=== PATIENT | male | born 1985 | race Caucasian/White ===

== ENCOUNTER 2024-05-03 07:53 | Emergency (ER) | payer OTHER, SELFPAY ==
[2024-05-03 08:01] VITALS: BP 136/87; PULSE 99; TEMP 36.9; O2SAT 98; BMI 30.7
--- NOTE | 2024-05-03 08:09 | XR_ITS ---
[address] [address] Patient Name: NASIMA HUSSEIN MRN: [id number] date: 1985 Sex: M Assigned Patient Location: ER Current Patient Location: ER Accession/Order Number: [id number] Exam Date: 05/03/2024 08:25 Report Date: 05/03/2024 09:04 At the request of: NOAH ZHONG Procedure: XR chest 1V EXAM: XR chest 1V INDICATION: Cough/fever. COMPARISON: None. TECHNIQUE: Single frontal view of the chest FINDINGS: Normal cardiomediastinal contours. Peripheral airspace opacities in the lower lungs bilaterally. No pleural effusion or pneumothorax. No acute osseous abnormality. XR/XR chest 1V IMPRESSION: Bilateral lower lung multifocal pneumonia. Electronically authenticated by: EMI SABILLON Date: 05/03/2024 09:04
--- NOTE | 2024-05-03 08:18 | ED.URI1 ---
HPI - URI/Sore Throat General Chief Complaint: Upper Respiratory Infection Stated Complaint: URTI COMPLAINTS/FEVER Time Seen by Provider: 05/03/24 08:09 Source: patient Limitations: no limitations History of Present Illness HPI Narrative: Patient here complaining of head congestion aches and pains fever chills nausea with several episodes of diarrhea this week. He said several family members are ill. He went to a local urgent care states he thinks he was tested for COVID and influenza, both were negative. They did place him on Augmentin. He does not have any severe pain in his facial sinus area. Does not have any shortness of breath. He does have some coughing. He says his throat still feels like it is on fire. He is otherwise felt with no underlying past medical history or medication use. Related Data Allergies Allergy/AdvReac Type Severity Reaction Status Date / Time methylprednisolone AdvReac Mild Hives Verified 05/03/24 08:07 [From Medrol] PFSH PFSH Social History Little interest or pleasure in doing things: not at all Feeling down, depressed, or hopeless: not at all Exam Narrative Exam Narrative: Patient is awake alert good historian does not appear toxic or critically ill but he looks like he just does not feel very good and is fatigued and tired. HEENT shows very minimal nasal stuffiness congestion. There is no conjunctivitis. He is mucous membranes are moist and pink. He does have a little bit of coughing and he is bringing up some yellowish-green sputum. No bloody sputum. Heart rate and rhythm are normal. Skin and integument are normal. Does not have any abdominal pain. Mentation and cognitive function are normal. Constitutional Vital Signs, click to edit/add: Last Vital Signs Temp 98.4 F 05/03/24 08:01 Pulse 99 H 05/03/24 08:01 Resp 18 05/03/24 08:01 BP 136/87 05/03/24 08:01 Pulse Ox 98 05/03/24 08:01 O2 Del Method Room Air 05/03/24 08:01 Course Vital Signs Vital signs: Vital Signs Temperature 98.4 F 05/03/24 08:01 Pulse Rate 99 H 05/03/24 08:01 Respiratory Rate 18 05/03/24 08:01 Blood Pressure 136/87 05/03/24 08:01 Pulse Oximetry 98 05/03/24 08:01 Oxygen Delivery Method Room Air 05/03/24 08:01 Temperature 98.4 F 05/03/24 08:01 Pulse Rate 99 H 05/03/24 08:01 Respiratory Rate 18 05/03/24 08:01 Blood Pressure 136/87 05/03/24 08:01 Pulse Oximetry 98 05/03/24 08:01 Oxygen Delivery Method Room Air 05/03/24 08:01 MDM - URI/Sore Throat MDM Narrative Medical decision making narrative: Although he was tested previously his symptoms are strongly suggestive of COVID or influenza so that was repeated. Both of those are negative. Rapid strep is negative. However his chest x-ray shows a substantial left lower lobe pneumonia and also right basilar pneumonia. He has been taking Augmentin and I will give him additionally azithromycin 500 mg IV here. He was given a liter of fluid and had good urinary output. Will give him off work through Saturday of this week and I want him to follow-up with his primary care doctor Lab Data Labs: Lab Results 05/03/24 Range/Units 08:38 Influenza Type A Ag Negative Influenza Type B Ag Negative SARS-CoV-2 Ag (CV2AG) Negative (NEGATIVE) Streptococcus Screen Negative Discharge Plan Discharge Chief Complaint: Upper Respiratory Infection Clinical Impression: Pneumonia Patient Disposition: Home, Self-Care Time of Disposition Decision: 10:41 Print Language: Kyrgyz Additional Instructions: Start azithromycin today. Continue Augmentin. Total rest for next 3 days off work. Follow-up with your family doctor by Saturday Referrals: Harshal Coombs DO [Primary Care Provider] - 1 week
[2024-05-03 09:05] LABS: Influenza Virus A Antigen Negative; Influenza Virus B Antigen Negative; Internal Control Within Normal Limits; Strep A Antigen Screen Negative
[2024-05-03 09:06] LABS: Internal Control Within Normal Limits; SARS-CoV-2 Ag NEGATIVE (NEGATIVE)
[2024-05-03] MEDS: AZITHROMYCIN 500 MG in 0.9 % SODIUM CHLORIDE 250 ML 250 MG IV (09:30)
[2024-05-03] MEDS: 0.9 % SODIUM CHLORIDE 1,000 ML 1000 ML IV (09:31)
== END 2024-05-03 10:47 | disposition home or self-care (01) ==
PROVIDERS: Emergency Provider Emergency Medicine Emergency Medical Services; PCP Family Medicine
DX: J18.9 Pneumonia, unspecified organism (principal); Z20.822 Contact with and (suspected) exposure to COVID-19
CPT/HCPCS: 71045; 87070; 87804; 87811; 87880; 96365; 99285; J0456

== ENCOUNTER 2024-05-11 13:41 | Outpatient (OUT) | payer OTHER, SELFPAY ==
--- NOTE | 2024-05-11 13:52 | XR_ITS ---
The [address] [address] Patient Name: NASIMA HUSSEIN MRN: [id number] date: 1985 Sex: M Assigned Patient Location: [facility] Current Patient Location: Accession/Order Number: [id number] Exam Date: 05/11/2024 13:55 Report Date: 05/12/2024 11:58 At the request of: NASIMA WALKERClifton Procedure: XR chest 2V PROCEDURE: XR chest 2V DATE: 05/11/2024 12:55 PM CDT COMPARISONS: 05/03/2024 CLINICAL INDICATION: 39 years Male BILATERAL PNEUMONIA J18.9 FINDINGS: The cardiomediastinal silhouette and pulmonary vasculature are within normal limits. The lungs have cleared in the interval. Presently, there is no consolidating infiltrates is just pneumonia on these frontal and lateral views. There is no evidence of pleural effusion or pneumothorax. XR/XR chest 2V IMPRESSION: Chest radiograph is within normal limits. Previously noted lung infiltrates have cleared since 05/03/2024 exam. Electronically authenticated by: ELI BALL Date: 05/12/2024 11:58
== END 2024-05-11 13:42 | disposition home or self-care (01) ==
LOC: RAD 13:42
PROVIDERS: PCP Family Medicine; Visit Provider Family Medicine
DX: J18.9 Pneumonia, unspecified organism (principal)
CPT/HCPCS: 71046

== ENCOUNTER 2024-06-16 18:09 | Emergency (ER) | payer OTHER, SELFPAY ==
[2024-06-16 18:19] VITALS: BP 123/81; PULSE 70; TEMP 36.8; O2SAT 97; BMI 31.2
--- NOTE | 2024-06-16 18:23 | XR_ITS ---
The [place] [id number] Patient Name: NASIMA HUSSEIN MRN: [id number] date: 1985 Sex: M Assigned Patient Location: ER Current Patient Location: ED.MAIN Accession/Order Number: [id number] Exam Date: 06/16/2024 18:35 Report Date: 06/16/2024 20:43 At the request of: OMAR MICHEL Procedure: XR finger LT min 2V EXAM: PLAIN FILM OF FINGER LEFT HISTORY: Left finger laceration. TECHNIQUE: 3 views of the left index finger are submitted for review. COMPARISON: None. FINDINGS: No acute displaced fracture.. Bone mineralization is within normal limits. Joint spaces are maintained. Soft tissues are edematous. There is no radiopaque foreign body. XR/XR finger LT min 2V IMPRESSION: Soft tissue edema in a patient with left finger laceration. No fracture Electronically authenticated by: TANIA KHOURY Date: 06/16/2024 20:43
--- OUTSIDE RECORDS SUMMARY | 2024-06-16 18:26 | XMS_ITS | CCD ---
Author Organization [facility] CliniSyri Care Team Providers Care Data Integrity Consultant Name Role Phone Jamari Coombs Unavailable Harshal Coombs Unavailable Chelsy Parnell Unavailable Анна Woodruff Unavailable Allergies Allergy Classification Reported Allergen(s) Allergy Type Date of Onset Reaction(s) Facility (4 sources) methylPREDNISolone Drug Allergy [facility]izer Other Medications Current Medications Medication Drug Class(es) Dates Sig (Normalized) Sig (Original) albuterol 0.83 mg/ml inhalation solution (2 sources) beta2-Adrenergic Agonist Start: 05-05-2024 take 2.5 mg by inhalation every six hours Albuterol Sulfate Active 2.5 MG INHALATION Every 6 hours May 05, 2024 12:00am fluticasone propionate 0.05 mg/actuat metered dose nasal spray (1 source) Corticosteroid Start: 08-20-2023 take 1 spray(s) nasal route once daily Flonase Allergy Relief 50 MCG/ACT 1 spray in each nostril Nasally Once a day for 14 day(s) Aug, Active Completed/Discontinued Medications Medication Drug Class(es) Dates Sig (Normalized) Sig (Original) acetaminophen 325 mg / HYDROcodone bitartrate 5 mg oral tablet (4 sources) Opioid Agonist Start: 09-13-2017 End: 04-29-2024 Hydrocodone-Acetam inophen ([place]) 5-325 mg tablet Discontinued 2 TAB PO every 6 to 8 hours September 13, 2017 April 29, 2024 9:11am amoxicillin 875 mg / clavulanate 125 mg oral tablet (7 sources) Penicillin-class Antibacterial Start: 04-29-2024 End: 05-11-2024 take 1 tablet by mouth twice daily Amoxicillin-Pot Clavulanate Discontinued 1 TAB PO Twice daily 07 06April 29, 2024 12:00am May 11, 2024 1:00pm Start: 02-20-2023 take 1 tablet by chuck every twelve hours Amoxicillin-Pot Clavulanate 875-125 MG 1 tablet Orally every 12 hrs for 10 day(s) Aug, Active azithromycin 250 mg oral tablet (6 sources) Macrolide Antimicrobial Start: 05-11-2024 End: 05-19-2024 Azithromycin (Zithromax Z-Bobby) 250 mg tablet Discontinued 0 PO As Directed May 11, 2024 12:00am May 19, 2024 4:27pm For 250 mg dose pack: take 500 mg today (day 1), then 250 mg for 4 days (days 2-5) orally as directed; Start: 05-05-2024 End: 05-11-2024 Azithromycin Discontinued MG PO May 05, 2024 12:00am May 11, 2024 1:00pm Start: 05-05-2024 Azithromycin A ctive MG PO May 05, 2024 12:00am Start: 05-09-2021 take 2 tablets by mo [facility] once daily, then take 1 tablet by mouth once daily Zithromax 250 MG 2 tablet on the first day, then 1 tablet daily for 4 days Orally as directed Apr, Active cephalexin 500 mg oral capsule (4 sources) Cephalosporin Antibacterial Start: 09-13-2017 End: 09-20-2017 take 1 capsule by mouth every twelve hours Cephalexin (Keflex) 500 mg capsule Discontinued 500 MG PO Q12H 14 September 13, 2017 1:00am September 20, 2017 1:04am methylPREDNISolone (2 sources) Corticosteroid Start: 03-04-2017 SOLU-MEDROL 41 - 125 mg Feb, 2 cc Problems Active Problems Problem Classification Problem Date Documented Da te Episodic/Chronic Immunizations and screening for infectious disease (4 sources) Contact with and (suspected) exposure to other viral communicable diseases; Translations: [Contact with or exposure to other viral diseases] Onset: 08-23-2021 Resolved: 08-23-2021 Episodic Other ear and sense organ disorders (4 sources) Otalgia, left ear; Translations: [Left ear pain] Episodic Other gastrointestinal disorders (4 sources) Diarrhea; Translations: [Diarrhea, unspecified] Episodic Other upper respiratory infections (9 sources) Acute pharyngitis, unspecified; Translations: [Acute sinusitis, unspecified] Episodic Pneumonia (except that caused by tuberculosis or sexually transmitted disease) (8 sources) Pneumonia, unspecified organism; Translations: [Pneumonia, organism unspecified] 05-05-2024 Episodic Past or Other Problems Problem Classification Problem Date Documented Da te Episodic/Chronic Other upper respiratory disease (1 source) Nasal congestion Onset: 08-07-2021 Resolved: 08-07-2021 Episodic Results Test Name Value Interpretation Reference Range Facility Laboratory - Microbiology an d Antimicrobial susceptibilityon 05-03-2024 S. pyogenes Ag Ql (Unsp spec) Negative [facility] SARS-CoV-2 (COVID-19) RNA GEOVANNI+probe Ql (Unsp spec) Negative NEGATIVE [facility] Comment on above: This test has not be en FDA cleared or approved, but has beenauthorized by the FDA under an Emergency Use Authorization(EUA) for use by authorized laboratories certified underIA that meet the requirements to perform moderate or highcomplexity testing. This test has been authorized only forthe detection of proteins from SARS-CoV-2, not for any otherviruses or pathogens. The emergency use of this test isauthorized for the duration of the declaration thatcircumstances exist justifying the authorization ofemergency use of in vitro diagnostic tests for detectionand/or diagnosis of Covid-19 under section 564(b)(1) of theAct, 21 U.S.C. 360bbb-3(b)(1), unless the declaration isterminated or authorization is revoked sooner. No Panel Informationon 05-03 Bedside Influenza Type A Antigen Negative [facility] Comment on above: Negative for Flu A p rotein antigen. Infection due to Flu Acannot be ruled out. Flu A antigen in the sample may bebelow the detection limit of the test. Bedside Influenza Type B Antigen Negative [facility] Comment on above: Negative for Flu B p rotein antigen. Infection due to Flu Bcannot be ruled out. Flu B antigen in the sample may bebelow the detection limit of the test. Influenza virus A and B and SARS-CoV-2 (COVID-19) RNA panel - Respiratory system specon 04-29-2024 Influenza virus A and B RNA and SARS-CoV-2 (COVID-19) N gene panel GEOVANNI+probe (Resp) Negative [facility] Laboratory - Microbiology an d Antimicrobial susceptibilityon 04-29-2024 SARS-CoV-2 (COVID-19) RNA GEOVANNI+probe Ql (Unsp spec) Negative [facility] No Panel Informationon 04-29 POC Influenza B (GEOVANNI) Negative [facility] Quick Strepon 02-20-2023 S. pyogenes Org specific cx Ql (Throat) Negative [facility] Other Quick Strep [facility] Other COVID + FLU Quick Testingon 08-23-2021 COVID + FLU Quick Testing Negative [facility] Other COVID-19 Lab Corpon 05-09-20 SARS-CoV-2 (COVID-19) RNA GEOVANNI+probe Ql (Unsp spec) Not detected Normal Not Detected [facility] Comment on above: Order Comment: Reaso n for Exam Body aches Healthcare Worker?: N Result Comment: This nucleic acid amplification test was developed and its performance characteristics determined by [employer]. Nucleic acid amplification tests include RT- PCR and TMA. This test has not been FDA cleared or approved. This test has been authorized by FDA under an Emergency Use Authorization (EUA). This test is only authorized for the duration of time the declaration that circumstances exist justifying the authorization of the emergency use of in vitro diagnostic tests for detection of SARS-CoV-2 virus and/or diagnosis of COVID-19 infection under section 564(b)(1) of the Act, 21 U.S.C. 360bbb-3(b) (1), unless the authorization is terminated or revoked sooner. When diagnostic testing is negative, the possibility of a false negative result should be considered in the context of a patient's recent exposures and the presence of clinical signs and symptoms consistent with COVID-19. An individual without symptoms of COVID-19 and who is not shedding SARS-CoV-2 virus would expect to have a negative (not detected) result in this assay. PERFORMED BY: [facility] [address] [address] PATHOLOGIST MEDICARE BILLER SANDRA BURR M.D. Performed By: #### C ORONAVIRUS #### [facility] , PROGRESSon 12-13-2019 PROGRESS HNO ID: [id number] Author: Bernie Romero (Pa) Service: ? Author Type: Physician Research And Development Director Type: Progress Notes Filed: 12/13/2019 1:06 PM Note Text: Telemedicine Visit - Digital Health Virtual Visit Note Patient seen on [employer], an [employer] platform. Location of patient: [place] History of Present Illness Harshal Garcias is a 34 year old year old male who presents for the past 1 day(s) with symptoms of fever between 100.4 and 100.6 present 3 days ago which had resolved the following day w/o antipyretics. Other sx present at the same time were a number of epidoses of diarrhea described as watery and non bloody that lasted 4 hrs and non-bilious vomiting that lasted 2 hrs longer before completely resolving. Pt denies any other sx or contact with similar sx. Pt employer requesting a return to work note since temp has been normal for 3 days. of Fever and Diarrhea that are: Improving Symptoms include:Positive for Fever and Diarrhea and Negative for Chills/Sweats, Cough, SOB/ Wheezing, Nausea, Blood in Stool and Abdominal Pain No history of gastrointestinal disease. No known risk factors for parasitic or bacterial infection. Oral intake: Continued Sick contacts: None Recent travel: None Recent Antibiotic use: None Recent Hospitalization: None OTC meds/remedies that patient has tried: None History reviewed. No pertinent past medical history. History reviewed. No pertinent surgical history. ALLERGIES Patient has no known allergies. MEDICATIONS No prescriptions on file. History reviewed. No pertinent family history. Social History Tobacco Use - Smoking status: Not on file Substance Use Topics - Alcohol use: Not on file - Drug use: Not on file Video Exam (Examination performed via Video enabled technology) General appearance: Alert, oriented, pleasant, in NAD :Yes Ill appearing :No Lethargic appearing :No Hydration: Appears Hydrated Oropharynx: Mucus membranes appears moist Skin: Turgor <3 seconds Respiratory distress :No Abdomen inspection: Distended: No, Tenderness to self-palpation: No PLAN: ASSESSMENT/PLAN: 1. Return to work evaluation - ICD9: V72.85, ICD10: Z76.89 (primary diagnosis) 2. Fever, unspecified fever cause - ICD9: 780.60, ICD10: R50.9 RESOLVED 3. Vomiting and diarrhea - ICD9: 787.03, 787.91, ICD10: R11.10, R19.7 Resolved In general, these three things have to be met for clearance to return to work with face to face evaluation: 1. You have had no fever for at least 72 hours (that is three full days of no fever without the use medicine that reduces fevers) 2. Other symptoms have improved (for example, when your cough or shortness of breath have improved) 3. At least 7 days have passed since your symptoms first appeared Bernie Romero PA-C If you let us know who your primary care provider is, we will send them a notification of today's visit through our electronic medical records system. Since not all providers have access to our notifications, we strongly encourage you to share the following record of today's visit with your primary care provider at your next visit. This will help in providing you the best care. Normal [facility] Vital Signs Date Time Vital Sign Value Performing Clinician Facility 05-19-2024 16:290400 Body height 168.91 cm [facility] 05-19-2024 16:29-0400 Body mass index (BMI) [Ratio] 32.3 kg/m2 [facility] 05-19-2024 16:29-0400 Body weight 92.07 kg [facility] 05-19-2024 16:29-0400 Diastolic blood pressure 76 mm[Hg] [facility] 05-19-2024 16:29-0400 Heart rate 85 /min [facility] 05-19-2024 16:29-0400 Respiratory rate 18 /min [facility] 05-19-2024 16:29-0400 SaO2% (BldA) [Mass fraction] 98 % [facility] 05-19-2024 16:29-0400 Systolic blood pressure 108 mm[Hg] [facility] 05-11-2024 12:47-0400 Body height 168.91 cm [facility] 05-11-2024 12:47-0400 Body mass index (BMI) [Ratio] 32.1 kg/m2 [facility] 05-11-2024 12:47-0400 Body temperature 98.7 [degF] [facility] 05-11-2024 12:47-0400 Body weight 91.62 kg [facility] 05-11-2024 12:47-0400 Diastolic blood pressure 74 mm[Hg] [facility] 05-11-2024 12:47-0400 Heart rate 93 /min [facility] 05-11-2024 12:47-0400 Respiratory rate 18 /min [facility] 05-11-2024 12:47-0400 SaO2% (BldA) [Mass fraction] 94 % [facility] 05-11-2024 12:47-0400 Systolic blood pressure 114 mm[Hg] [facility] 05-05-2024 15:22-0400 Heart rate 100 /min [facility] 05-05-2024 15:22-0400 Respiratory rate 18 /min [facility] 05-05-2024 15:22-0400 SaO2% (BldA) [Mass fraction] 99 % [facility] 05-05-2024 14:28-0400 Body height 168.91 cm [facility] 05-05-2024 14:28-0400 Body mass index (BMI) [Ratio] 31.1 kg/m2 [facility] 05-05-2024 14:28-0400 Body weight 88.9 kg [facility] 05-05-2024 14:28-0400 Diastolic blood pressure 72 mm[Hg] [facility] 05-05-2024 14:28-0400 Heart rate 81 /min [facility] 05-05-2024 14:28-0400 Respiratory rate 18 /min [facility] 05-05-2024 14:28-0400 SaO2% (BldA) [Mass fraction] 94 % [facility] 05-05-2024 14:28-0400 Systolic blood pressure 118 mm[Hg] [facility] 04-29-2024 09:110400 Body height 168.91 cm [facility] 04-29-2024 09:11-0400 Body mass index (BMI) [Ratio] 32.4 kg/m2 [facility] 04-29-2024 09:11-0400 Body temperature 97.9 [degF] [facility] 04-29-2024 09:11-0400 Body weight 92.64 kg [facility] 04-29-2024 09:11-0400 Diastolic blood pressure 71 mm[Hg] [facility] 04-29-2024 09:11-0400 Heart rate 69 /min [facility] 04-29-2024 09:11-0400 Respiratory rate 16 /min [facility] 04-29-2024 09:11-0400 SaO2% (BldA) [Mass fraction] 96 % [facility] 04-29-2024 09:11-0400 Systolic blood pressure 112 mm[Hg] [facility] 08-20-2023 09:00-0500 Body height 168.91 cm Анна Woodruff Other [facility] Other 08-20-2023 09:00-0500 Body mass index (BMI) [Ratio] 32.87 kg/m2 Анна Woodruff Other [facility] Other 08-20-2023 09:00-0500 Body temperature 97.5 [degF] Анна Woodruff Other [facility] Other 08-20-2023 09:00-0500 Body weight 93.8 kg Анна Woodruff Other [facility] Other 08-20-2023 09:00-0500 Diastolic blood pressure 81 mm[Hg] Анна Woodruff Other [facility] Other 08-20-2023 09:00-0500 Respiratory rate 18 /min Анна Woodruff Other [facility] Other 08-20-2023 09:00-0500 SaO2% (BldA) [Mass fraction] 98 % Анна Woodruff Other [facility] Other 08-20-2023 09:00-0500 Systolic blood pressure 132 mm[Hg] Анна Woodruff Other [facility] Other 02-20-2023 09:00-0400 Body height 168.91 cm Chelsy Soheila Other [facility] Other 02-20-2023 09:00-0400 Body mass index (BMI) [Ratio] 31.83 kg/m2 Chelsy Soheila Other [facility] Other 02-20-2023 09:00-0400 Body temperature 98.4 [degF] Chelsy Soheila Other [facility] Other 02-20-2023 09:00-0400 Body weight 90.81 kg Chelsy Soheila Other [facility] Other 02-20-2023 09:00-0400 Diastolic blood pressure 72 mm[Hg] Chelsy Soheila Other [facility] Other 02-20-2023 09:00-0400 Respiratory rate 18 /min Chelsy Soheila Other [facility] Other 02-20-2023 09:00-0400 SaO2% (BldA) [Mass fraction] 98 % Chelsy Soheila Other [facility] Other 02-20-2023 09:00-0400 Systolic blood pressure 110 mm[Hg] Chelsy Soheila Other [facility] Other Encounters Encounter Date Encounter Type Care Provider Facility Start: 05-19-2024 End: 05-19-2024 ambulatory [facility] Work Phone: Start: 05-19-2024 End: 05-19-2024 Patient encounter procedure [facility] Physician [facility] [place] Work Phone: Start: 05-11-2024 End: 05-11-2024 ambulatory [facility] Work Phone: Start: 05-11-2024 End: 05-11-2024 Patient encounter procedure [facility] Physician [facility] [place] Work Phone: Start: 05-05-2024 End: 05-05-2024 ambulatory [facility] Work Phone: Start: 05-05-2024 End: 05-05-2024 Patient encounter procedure [facility] Physician [facility] [place] Work Phone: Start: 05-03-2024 Non-patient / Non-visit [facility] [employer] Work Phone: Start: 04-29-2024 End: 04-29-2024 ambulatory [facility] Work Phone: Start: 04-29-2024 End: 04-29-2024 Patient encounter procedure [facility] Physician [facility] [place] Work Phone: Start: 08-20-2023 End: 08-20-2023 ambulatory Анна Woodruff Other [facility] Other Start: 08-20-2023 Office outpatient vi sit 25 minutes Анна Woodruff [facility] [place] Start: 02-20-2023 End: 02-20-2023 ambulatory Chelsy Parnell Other [facility] Other Start: 02-20-2023 Office outpatient vi sit 15 minutes Chelsy Parnell [facility] [place] Start: 08-23-2021 End: 08-23-2021 ambulatory Harshal Corin Other [facility] [employer] Other Start: 08-23-2021 Nursing evaluation o f patient and report Harshal Coombs [facility] [place] Start: 08-07-2021 End: 08-07-2021 ambulatory Jamari Coombs Other [facility] Other Start: 08-07-2021 Telephone encounter Jamari Coombs [facility] [place] Plan of Treatment Date Care Activity Detail Author XR Chest 2 Views [facility] Payers Date Payer Category Payer Policy ID Private Health Insurance [id number] Self-pay Self Pay [id number] Unknown [id number] . [id number] Social History Date Type Detail Facility Unknown if ever smoked [facility] Other Sex Assigned At Sex Assigned At Bir th [facility] [employer] Other Start: 10-02-2018 Tobacco smoking status NHIS Never smoked tobacco (finding) [facility] Start: 1985 Sex Assigned At Male F [facility] Evaluation note 05-05-2024 Note Date & Type Note Facility 05-05-2024 Evaluation note Authored May 05, 2024 2:22pm The above note written by Raphael WHEATLEY acting as human recorder, note dictated by Dr. Harshal Coombs. Author Liliane Brown [facility] Authored May 11, 2024 12:56pm Sooner if needed, the ER if concerns,The above note written by Liliane Brown LPN acting as human recorder, note dictated by Dr. Harshal Coombs [facility] Work Phone: Evaluation note 05-05-2024 Note Date & Type Note Facility 05-05-2024 Evaluation note Authored May 05, 2024 2:22pm The above note written by Raphael WHEATLEY acting as human recorder, note dictated by Dr. Harshal Coombs. Author Liliane Brown [facility] Authored May 19, 2024 4: 32pm Sooner if needed, the ER if concerns,The above note written by Liliane Brown LPN acting as human recorder, note dictated by Dr. Harshal Coombs Author Liliane Brown [facility] Authored May 11, 2024 12:56pm Sooner if needed, the ER if concerns,The above note written by Liliane Brown LPN acting as human recorder, note dictated by Dr. Harshal Coombs [facility] Work Phone: Evaluation note 08-20-2023 Note Date & Type Note Facility 08-20-2023 Evaluation note Encounter Date Diagnosis Assessment Notes Aug, Acute non-recurrent maxillary sinusitis (ICD-10 - J01.00) No testing performed at this time. Discussed diagnosis with patient. Will today for bacterial sinusitis based on physical exam and duration of symptoms. Take antibiotic as prescribed, complete entire course of therapy even if symptoms resolve. Reviewed allergies and recent antibiotic use with patient. Advised patient to take OTC Mucinex D, rx of Flonase. Supportive care as directed, push fluids and rest, Tylenol and/or Motrin as directed for discomfort/fev er, warm moist compress over sinuses several times a day, cool mist humidification , nasal saline spray as directed. Symptoms should improve in the next 3 days, if symptoms persist follow up with PCP. Immediate eval for warning s/sx as discussed. Patient verbalizes understanding and is agreeable to treatment plan [facility] Other Evaluation note 02-20-2023 Note Date & Type Note Facility 02-20-2023 Evaluation note Encounter Date Diagnosis Assessment Notes Feb, Sore throat (ICD-10 - J02.9) Feb, Acute sinusitis, recurrence not specified, unspecified location (ICD-10 - J01.90) Sinusitis home care material was printed Drink plenty fluids, get plenty of rest. Take the Augmentin as prescribed until gone if no improvement in 2 to 3 days. Follow-up with your family physician if no improvement in 2 to 3 days. Continue to use your Flonase, 2 sprays to each nostril daily.. Take Mucinex and/or Sudafed for congestion. Take Tylenol or Motrin for aches pains or fevers. Patient is leaving for vacation in 2 days and is requesting a prescription for an antibiotic. The antibiotic will be prescribed and patient will be instructed to start and if no improvement in 2 to 3 days [facility] Other Evaluation note 08-07-2021 Note Date & Type Note Facility 08-07-2021 Evaluation note Encounter Date Diagnosis Assessment Notes Jul, Sinus congestion (ICD-10 - R09.81) [facility] Other Evaluation note Note Date & Type Note Facility Evaluation note [employer] Other Evaluation note Note Date & Type Note Facility Evaluation note No assessment information availa [facility] Work Phone: Evaluation note Note Date & Type Note Facility Evaluation note Authored May 05, 2024 2:22pm The above note written by Raphael WHEATLEY acting as human recorder, note dictated by Dr. Harshal Coombs. [facility] Work Phone: History general Narrative - Reported Note Date & Type Note Facility History general Narrative - Reported Type Surgical History wisdom teeth extracted Surgical History Vasectomy Hospitalization History No Hospitalizati on history information [facility] Other History general Narrative - Reported Note Date & Type Note Facility History general Narrative - Reported [facility] Other Summary Purpose Family History Relationship Condition Age at Onset Recorded Date/T jeovanny father Malignant neoplasm of skin Unknown Malignant neoplasm Unknown grandparent Unknown Malignant neoplasm of stomach Unknown Relationship Condition Age at Onset Recorded Date/T jeovanny father Malignant neoplasm of skin Unknown Malignant neoplasm Unknown maternal grandfather Unknown paternal grandfather Unknown Malignant neoplasm of stomach Unknown Advance Directives Advance Directive Response Recorded Date/ Time Advance Directives No September 10, 2017 12:50pm Chief Complaint and Reason for Visit Chief Complaint Fever, sinus pressur e Chief Complaint Fever, sinus pressur e ER f/u pneumonia Reason for Visit Acute sinusitis Contact with and (suspected) exposure to covid-19 Bilateral pneumonia Chief Complaint Fever, sinus pressur e ER f/u pneumonia 1 week check up per [facility] Reason for Visit Acute sinusitis Contact with and (suspected) exposure to covid-19 Bilateral pneumonia Bilateral pneumonia Chief Complaint Fever, sinus pressur e ER f/u pneumonia 1 week check up per [facility] per [facility] recheck pneumonia Reason for Visit Acute sinusitis Contact with and (suspected) exposure to covid-19 Bilateral pneumonia Bilateral pneumonia Bilateral pneumonia Additional Source Comments (unrecognized sect ion and content) No Status Records FoundNo Status Records Found INFORMATION SOURCE (unrecogn ized section and content) DATE CREATED AUTHOR 12/13/2019 [facility] DATE CREATED AUTHOR AUTHOR'S ORGANIZ ATION 09/28/2021 [facility] REASON FOR VISIT (unrecogniz ed section and content) Clinicalsore throat, sinus, feverhead congestion, sore throat, body aches, light headedness Care Teams (unrecognized sec tion and content) Team Status: Active Member Role Status Dates Harshal Coombs DO Primary Care Provider Active Team Status: Inactive Member Role Status Derrek Coombs DO Primary Care Provider Active Sta rt: April 29, 2024 End: April 29, 2024 Nina BRYANT APRN Attending Provider Active Start: April 29, 2024 End: April 29, 2024 Team Status: Inactive Member Role Status Derrek Coombs DO Primary Care Provider Active Sta rt: April 29, 2024 End: April 29, 2024 Nina Patrick APRN Attending Provider Active S tart: April 29, 2024 End: April 29, 2024 Team Status: Active Member Role Status Derrek Coombs DO Primary Care Provider Active Sta rt: May 03, 2024 Azael Marie Attending Provider Active Start: May 03, 2024 Team Status: Inactive Member Role Status Derrek Coombs DO Primary Care Provide r, Attending Provider Active Start: May 05, 2024 End: May 05, 2024 Team Status: Inactive Member Role Status Derrek Coombs DO Primary Care Provide r, Attending Provider Active Start: May 11, 2024 End: May 11, 2024 Team Status: Inactive Member Role Status Dates Harshal Coombs , DO Primary Care Provide r, Attending Provider Active Start: May 19, 2024 End: May 19, 2024 Goals (unrecognized section and content) Goals may be documented in a n alternate section FOR RECORDS PERTAINING TO PATIENTS WHO ARE OR HAVE BEEN ENROLLED IN A CHEMICAL DEPENDENCY/SUBSTANCEABUSE PROGRAM, SOME INFORMATION MAY BE OMITTED. This clinical summary was aggregated from multiple sources. Caution should be exercised in using it in the provision of clinical care. This summary normalizes information from multiple sources, and as a consequence, information in this document may materially change the coding, format and clinical context of patient data. In addition, data may be omitted in some cases. CLINICAL DECISIONS SHOULD BE BASED ON THE PRIMARY CLINICAL RECORDS. [employer] provides no warranty or guarantee of the accuracy or completeness of information in this document.
--- NOTE | 2024-06-16 18:29 | ED_ITS ---
HPI HPI - Extremity Injury (Upper) General Chief Complaint: Extremity Injury, Upper Stated Complaint: Laceration, Upper Extremity - Table Saw Time Seen by Provider: 06/16/24 18:35 Source: patient Mode of arrival: walk-in Limitations: no limitations History of Present Illness HPI narrative: Patient is a 39-year-old male who presents to the emergency department for an injury to the left index finger at home. Patient states he was using a table saw when he avulsed the distal tip of his left index finger. Bleeding is well- controlled. Unknown last tetanus. He states that is starting to throb. He is right-hand dominant, no other associated injuries. Related Data Previous Rx's ?Medication ?Instructions ?Recorded cephalexin 500 mg capsule 500 mg PO Q8H 7 days #21 caps 06/16/24 ketorolac 10 mg tablet 10 mg PO TID PRN pain #10 tabs 06/16/24 Allergies Allergy/AdvReac Type Severity Reaction Status Date / Time methylprednisolone (From AdvReac Mild Hives Verified 06/16/24 18:18 Medrol) Opioid HPI Opioid Management Most Recent Pain and Opioid Data: No Data to Display Review of Systems ROS Constitutional Denies: fever or chills Ears, nose, mouth, and throat Denies: throat pain or nasal congestion Cardiovascular Denies: chest pain Respiratory Denies: shortness of breath or cough Gastrointestinal Denies: nausea or vomiting Musculoskeletal Reports: extremity pain; Denies: back pain or neck pain Integumentary/Breast Denies: rash Neurological Denies: numbness in extremities or weakness in extremities Hematologic/Lymphatic Denies: easy bruising or easy bleeding PFSH PFSH Social History Little interest or pleasure in doing things: not at all Feeling down, depressed, or hopeless: not at all Exam Narrative Exam Narrative: Gen.: Awake, alert, in no distress Head: Normocephalic, atraumatic ENT: Moist mucous membranes Respiratory: No respiratory distress Extremities: Moves extremities equally, skin and tissue is avulsed from the dis tylor tip, radial aspect of the left index finger. The medial and distal portion of the fingernail is avulsed as well. There is no bony exposure. Superficial abrasions noted proximal to the fingernail. Psych: Normal mood and affect Neuro: No focal neuro deficit Skin: Warm, dry, intact Constitutional Vital Signs, click to edit/add: Last Vital Signs Temp 98.3 F 06/16/24 18:19 Pulse 70 06/16/24 18:19 Resp 16 06/16/24 18:19 BP 123/81 06/16/24 18:19 Pulse Ox 97 06/16/24 18:19 O2 Del Method Room Air 06/16/24 18:19 Course Vital Signs Vital signs: Vital Signs Temperature 98.3 F 06/16/24 18:19 Pulse Rate 70 06/16/24 18:19 Respiratory Rate 16 06/16/24 18:19 Blood Pressure 123/81 06/16/24 18:19 Pulse Oximetry 97 06/16/24 18:19 Oxygen Delivery Method Room Air 06/16/24 18:19 Temperature 98.3 F 06/16/24 18:19 Pulse Rate 70 06/16/24 18:19 Respiratory Rate 16 06/16/24 18:19 Blood Pressure 123/81 06/16/24 18:19 Pulse Oximetry 97 06/16/24 18:19 Oxygen Delivery Method Room Air 06/16/24 18:19 MDM - Extremity Injury (Upper) MDM Narrative Medical decision making narrative: X-rays show no bony involvement of the laceration. There is no bony exposure and no indication for suture repair at this time as the tissue was avulsed, there is no skin avulsion or laceration over the joint. Bleeding is controlled at this time. Tetanus is updated in the ER, Percocet given for pain in the area was cleansed and dressed. Patient remains neurovascularly intact. He declined narcotics for home and was given a prescription for Toradol, Keflex. He was encouraged to follow regular wound care and return to the ER if symptoms change or worsen. SUPERVISED APC VISIT, PHYSICIAN ATTESTATION: Based on the medical record the care appears appropriate. ? Medical Records Attestation: I reviewed the patient's medical records. Discharge Plan Discharge Chief Complaint: Extremity Injury, Upper Clinical Impression: Finger laceration Patient Disposition: Home, Self-Care Time of Disposition Decision: 18:43 Condition: Good Prescriptions / Home Meds: New ketorolac 10 mg tablet 10 mg PO TID PRN (Reason: pain) Qty: 10 0RF cephalexin 500 mg capsule 500 mg PO Q8H 7 Days Qty: 21 0RF Print Language: Israeli Instructions: Finger Laceration (ED) Referrals: Harshal Coombs DO [Primary Care Provider] - 1 week
[2024-06-16] MEDS: BACITRACIN 0.9 GM PACKET 1 PACKET TOPICAL (18:37)
[2024-06-16] MEDS: OXYCODONE HCL/ACETAMINOPHEN 5MG/325MG 1 TAB PO (18:37)
[2024-06-16] MEDS: ADACEL DIPH,PERTUSS(ACELL),TET VAC/PF 0.5 ML ADULT SYRINGE IM (18:38)
== END 2024-06-16 18:53 | disposition home or self-care (01) ==
PROVIDERS: Emergency Provider Emergency Medicine Emergency Medical Services; PCP Family Medicine
DX: S61.211A Laceration without foreign body of left index finger without damage to nail, initial encounter (principal); Z23 Encounter for immunization; W27.0XXA Contact with workbench tool, initial encounter
CPT/HCPCS: 73140; 90471; 90715; 99284